=== PATIENT | male | born 1960 | race Caucasian/White ===

== ENCOUNTER 2017-05-15 16:10 | Inpatient (IN) | payer OTHER ==
[~2017-05-15] VITALS: Ht 170.2 cm; Wt 81.8 kg
[~2017-05-15 16:10] MED LIST: DERMAFIX113 GM TP; GLYBURIDE MICRON6 MG PO; INVOKANA100 MG PO; IRON325 M1 PO; LIPITOR40 MG PO; LISINOPRIL20 MG PO; METFORMIN HCL500 MG PO; ONGLYZA5 MG PO; TRAMADOL HCL50 MG PO
[2017-05-15 16:43] LABS: HEMATOCRIT 46.8 % (38.0-50.0); HEMOGLOBIN 16.2 G/DL (12.5-16.6); MCH 31.6 PG (29.0-34.0); MCHC 34.6 G/DL (30.0-36.0); MCV 91.4 FL (86-99); PLATELET COUNT 289 K/uL (156-360); RBC DIS.WIDTH-CV 12.8 % (11.8-14.6); RED BLOOD COUNT 5.12 M/uL (4.00-5.50); WHITE BLOOD COUNT 7.9 K/uL (4.1-10.2)
[2017-05-15 16:53] LABS: CHLORIDE 107 mEq/L (99-109); SODIUM 140 mEq/L (136-147)
[2017-05-15 16:55] LABS: GLUCOSE 235 mg/dL (70-99)
[2017-05-15 16:58] LABS: GFR ESTIMATE (CALCULATED) > 59 mL/min/ (58.99-99999)
[2017-05-15 16:59] LABS: UREA NITROGEN (BUN) 18 mg/dL (9-23)
[2017-05-15 17:06] LABS: TROP-I INTERPRETATION NEGATIVE; TROPONIN-I < 0.01 ng/mL (0.0-0.30)
[2017-05-15 21:34] LABS: INTER. NORMALIZED RATIO 0.9
[2017-05-15 21:36] LABS: D-DIMER ELISA < 150.00 ng/mLDDU (<230)
[2017-05-15 21:37] LABS: PTT 26.4 SEC (25-37)
[2017-05-15 21:50] LABS: HEMOGLOBIN A1c (GLYCOHEMOGLOB) 6.9 % HGB (Below 5.7)
[2017-05-16 00:48] LABS: TROP-I INTERPRETATION NEGATIVE; TROPONIN-I < 0.01 ng/mL (0.0-0.30)
[2017-05-16 06:09] LABS: HEMATOCRIT 47.1 % (38.0-50.0); HEMOGLOBIN 16.1 G/DL (12.5-16.6); MCH 31.4 PG (29.0-34.0); MCHC 34.2 G/DL (30.0-36.0); PLATELET COUNT 261 K/uL (156-360); RBC DIS.WIDTH-CV 12.9 % (11.8-14.6); RBC DIS.WIDTH-SD 43.8 % (39-53); RED BLOOD COUNT 5.12 M/uL (4.00-5.50); WHITE BLOOD COUNT 8.9 K/uL (4.1-10.2)
[2017-05-16 06:18] LABS: CHLORIDE 112 mEq/L (99-109)
[2017-05-16 06:19] LABS: ALBUMIN 4.2 g/dL (3.2-4.8); MAGNESIUM 2.3 mg/dL (1.3-2.7); SODIUM 142 mEq/L (136-147)
[2017-05-16 06:21] LABS: GLUCOSE 153 mg/dL (70-99); TOTAL PROTEIN 6.9 g/dL (6.4-8.3)
[2017-05-16 06:23] LABS: TOTAL BILIRUBIN 0.7 mg/dL (0.0-1.0)
[2017-05-16 06:25] LABS: ALKALINE PHOSPHATASE 62 IU/L (3-129); CREATININE 0.7 mg/dL (0.6-1.3); GFR ESTIMATE (CALCULATED) > 59 mL/min/ (58.99-99999)
[2017-05-16 06:26] LABS: UREA NITROGEN (BUN) 15 mg/dL (9-23)
[2017-05-16 06:27] LABS: AST (GOT) 19 IU/L (2-34)
[2017-05-16 06:28] LABS: ALT (GPT) 22 IU/L (3-49)
[2017-05-16 06:33] LABS: TROP-I INTERPRETATION NEGATIVE; TROPONIN-I < 0.01 ng/mL (0.0-0.30)
[2017-05-16 07:23] LABS: HDL CHOLESTEROL 35 MG/DL (Desirable>=40); LDL CHOLESTEROL 45 mg/dL (Desirable<100); NON-HDL CHOLESTEROL 60 mg/dL (Desirable<160); TOTAL CHOLESTEROL 95 mg/dL (Desirable<200); TRIGLYCERIDES 75 MG/DL (Normal: <150)
[2017-05-16 08:11] LABS: THYROTROPIN (TSH) 0.68 MIU/L (0.4-5.5)
[2017-05-16 08:37] LABS: THYROTROPIN (TSH) 0.48 MIU/L (0.4-5.5)
[2017-05-16] MEDS ORDERED: XARELTO20 MG PO (12:11)
[2017-05-16] MEDS ORDERED: CARDIZEM CD,CA180 MG PO (12:11)
[2017-05-16 13:09] VITALS: BP 118/83
== END 2017-05-16 13:16 | disposition home or self-care (01) | DRG 310 ==
LOC: EME 16:10 → EDOF 19:43 → CANRESERV 19:54 → ENRESERV 19:54 → EDOF 05-16 13:16
PROVIDERS: Hospitalist
PROC: 5A2204Z Restoration of Cardiac Rhythm, Single (ICD-10-PCS; principal; 2017-05-15)
DX: I48.91 Unspecified atrial fibrillation (principal); I10 Essential (primary) hypertension; E78.5 Hyperlipidemia, unspecified; E11.9 Type 2 diabetes mellitus without complications; M19.90 Unspecified osteoarthritis, unspecified site; Z79.84 Long term (current) use of oral hypoglycemic drugs; Z87.891 Personal history of nicotine dependence; Z87.442 Personal history of urinary calculi
CPT/HCPCS: 71046; 71250; 80048; 80053; 80061; 82948; 83036; 83735; 84443; 84484; 85027; 85379; 85610; 85730; 93005; 99281; 99285; J3475; J7050

== ENCOUNTER 2017-05-15 22:05 | Inpatient (IN) | payer OTHER ==
[~2017-05-15] VITALS: Ht 167.6 cm; Wt 75.7 kg
[2017-05-16] MEDS ORDERED: XARELTO20 MG PO (12:11)
[2017-05-16] MEDS ORDERED: CARDIZEM CD,CA180 MG PO (12:11)
[2017-07-18 07:31] VITALS: BP 104/63
[2017-07-18] MEDS ORDERED: XARELTO20 MG PO (09:04)
[2017-07-18 13:52] VITALS: BP 113/67
[2017-07-18 15:55] VITALS: BP 121/71
[2017-07-18 18:27] VITALS: BP 117/60
[2017-07-19 00:20] VITALS: BP 109/69
[2017-07-19 04:31] VITALS: BP 137/60
[2017-07-19 07:58] VITALS: BP 110/64
[2017-07-19 08:21] LABS: CHLORIDE 108 MEQ/L (99-109); CREATININE 0.9 MG/DL (0.6-1.3); GFR ESTIMATE (CALCULATED) > 59 mL/min/ (58.99-99999); GLUCOSE 153 mg/dL (70-99); POTASSIUM 4.5 MEQ/L (3.7-5.4); SODIUM 139 MEQ/L (136-147); UREA NITROGEN (BUN) 18 mg/dL (9-23)
[2017-07-19 12:22] VITALS: BP 131/67
[2017-07-19 16:00] VITALS: BP 144/76
[2017-07-19 20:32] VITALS: BP 138/77
[2017-07-20 00:16] VITALS: BP 130/74
[2017-07-20 04:10] VITALS: BP 127/80
[2017-07-20 08:00] VITALS: BP 149/78
[2017-07-20] MEDS ORDERED: BENADRYL25 MG PO (08:34)
[2017-07-20] MEDS ORDERED: OXYCODONE HCL5 MG PO (08:39)
[2017-07-20] MEDS ORDERED: SENNA PLUS TAB1 EACH PO (08:39)
[2017-07-20] MEDS ORDERED: XARELTO10 MG PO (08:39)
[2017-07-20 12:00] VITALS: BP 124/74
== END 2017-07-20 14:18 | DRG 470 ==
LOC: 2SOUTH → ENRESERV 22:05 → CANRESERV 22:05 → 2SOUTH 05-16 08:21 → ENRESERV 07-17 21:51 → 3WEST 07-18 06:26 → 2SOUTH 07-18 06:26 → 3WEST 07-18 13:36 → 2SOUTH 07-18 14:19 → 3WEST 07-20 14:18
PROVIDERS: Orthopaedic Surgery
PROC: 0SRC0J9 Replacement of Right Knee Joint with Synthetic Substitute, Cemented, Open Approach (ICD-10-PCS; principal; 2017-07-18)
DX: M17.11 Unilateral primary osteoarthritis, right knee (principal); I10 Essential (primary) hypertension; E11.9 Type 2 diabetes mellitus without complications; Z96.642 Presence of left artificial hip joint; Z87.442 Personal history of urinary calculi; Z86.14 Personal history of Methicillin resistant Staphylococcus aureus infection
CPT/HCPCS: 80048; 82948; C1713; J0131; J0690; J1815; J1885; J2250; J2405; J2795; J3370; J7050; J7120; L1820; S0020

== ENCOUNTER 2017-11-13 10:31 | Day surgery (SDC) | payer OTHER ==
[~2017-11-13] VITALS: Ht 1694.2 cm; Wt 81.6 kg
[~2017-11-13 10:31] MED LIST changes: +BENADRYL25 MG PO; +CARDIZEM CD,CA180 MG PO; +CLARITIN,ALAVAR10 MG PO; +DILTIAZEM 24HR180 MG PO; +OXYCODONE HCL5 MG PO; +SENNA PLUS TAB1 EACH PO; +ULTRAM50 MG PO; +VIAGRA100 MG PO; +XARELTO10 MG PO; +XARELTO20 MG PO; +ZESTRIL20 MG PO
[2017-11-13 11:27] VITALS: BP 114/71
[2017-11-13 14:25] VITALS: BP 131/78
[2017-11-13 15:17] VITALS: BP 148/94
[2017-11-13 16:13] LABS: CHLORIDE 108 MEQ/L (99-109); CREATININE 0.7 MG/DL (0.6-1.3); GFR ESTIMATE (CALCULATED) > 59 mL/min/ (58.99-99999); GLUCOSE 132 mg/dL (70-99); SODIUM 139 MEQ/L (136-147); UREA NITROGEN (BUN) 12 mg/dL (9-23)
== END 2017-11-13 15:25 | disposition home or self-care (01) ==
LOC: SDC 10:31
PROVIDERS: Orthopaedic Surgery
PROC: 0SNCXZZ Release Right Knee Joint, External Approach (ICD-10-PCS; principal; 2017-11-13)
DX: T84.89XA Other specified complication of internal orthopedic prosthetic devices, implants and grafts, initial encounter (principal); M25.661 Stiffness of right knee, not elsewhere classified; I10 Essential (primary) hypertension; E11.9 Type 2 diabetes mellitus without complications; Z86.14 Personal history of Methicillin resistant Staphylococcus aureus infection; Z86.718 Personal history of other venous thrombosis and embolism; Z96.642 Presence of left artificial hip joint; Z98.890 Other specified postprocedural states; Z79.01 Long term (current) use of anticoagulants; Z79.84 Long term (current) use of oral hypoglycemic drugs
CPT/HCPCS: 80048; 82948; J1170; J2405; J3010